=== PATIENT | male | born 1965 | race Caucasian/White ===

== ENCOUNTER 2016-12-17 08:02 | Outpatient (CLI) | payer MEDICARE, OTHER ==
[2016-12-17 08:43] LABS: eGFR (African) > 60; eGFR (Non-African) > 60
== END 2016-12-17 08:03 ==
LOC: LAB 08:02
PROVIDERS: ATTEND Family Medicine
DX: I10 Essential (primary) hypertension (principal)
CPT/HCPCS: 36415; 80053; 80061

== ENCOUNTER 2017-09-05 08:07 | Outpatient (CLI) | payer MEDICARE, OTHER ==
[~2017-09-05 08:07] MED LIST: BUPIVACAINE HCL/PF 2.5 MG/ML 10ML VIAL IV ONE; KETAMINE HCL 200 MG/20 ML VIAL ONE; LIDOCAINE HCL/PF 2% 100 MG/5 ML VIAL IJ ONE; NORMAL SALINE 500 ML IV.SOLN IV ONE; PROPOFOL 500 MG/50 ML VIAL IV ONE; SALINE FLUSH 10 ML DISP.SYRIN IVF ONE; TRIAMCINOLONE ACETONID 40MG/ML VIAL ONE
--- NOTE | 2017-09-05 12:59 | SURGICAL PROCEDURE NOTE PAIN ---
RADIOFREQUENCY NEUROLYSIS OF THE MEDIAL BRANCH OF THE SACRAL ALA, THE POSTERIOR/DORSAL BRANCHES OF S1, S2, AND S3. SUBJECTIVE: Mr. Mondragon presents today in follow up with return of bilateral low back pain, sacroiliac joint in nature. One year ago, I performed a lumbosacral radiofrequency neurolysis which markedly improved his back pain. He says that about a month ago his symptoms began returning and they are severe enough that he is presenting for a repeat radiofrequency neurolysis of the sacral ala, S1, S2, and S3. I am planning on doing this with monitored anesthesia care. ANESTHESIA: Monitored anesthesia care. PROCEDURE: Radiofrequency neurolysis of the medial branch of the sacral ala, the dorsal/ posterior branches of S1, S2, and S3. DESCRIPTION OF PROCEDURE: Consent was obtained after risks were fully explained including bleeding, infection, nerve damage, worsening of symptoms, and no improvement. The patient was taken to the procedure room and positioned prone on the fluoroscopic procedure table and under IV monitored anesthesia care, a skin wheal was raised over the left and right paraspinal margins with 1% Lidocaine. Following this, a 15 cm RFK needle was advanced to the junction of the S1 superior articular process of the sacral ala on both the left and right sides and motor stimulus at 2 Hz at 2.5 milliamps revealed no evidence of motor nerve root stimulation. Following this, 2 more needles were then placed at the lateral posterior foramen of S1 and S2 at the level of the dorsal/posterior branch of the sacral root and stimulus was then again affected. At this point, S2 and S3 bilaterally, needles were also placed in the same fashion and tested. Following this, a total of 40 mg was used with a local anesthetic of 1 mL of lidocaine and 1 mL of bupivacaine for a total of 8 mL of lidocaine and 8 mL of bupivacaine were used to anesthetize the tissue at the needle tip. With the needles in place, radiofrequency neurolysis was begun at 80 degrees centigrade for a total of 120 seconds. The needles were rotated at the 60 second point 180 degrees. At the conclusion of the procedure, the needles were removed. A sterile dressing was applied and the patient was taken to the recovery room in good condition status post radiofrequency neurolysis of 2 medial branches at the sacral ala and 6 dorsal/posterior branches of S1, S2, and S3. The patient was monitored for 20 minutes following the procedure, during which time the patient experienced no adverse sequelae. The patient was discharged home in good condition with a buggy driver driving the patient home. IMPRESSION: Lumbosacral spondylosis. PLAN: Radiofrequency neurolysis of sacral ala, S1, S2, and S3. FOLLOW UP: Return to clinic if problems develop or worsen. cc: Dr. Julita MCMAHON
== END 2017-09-05 08:10 ==
LOC: OUT 08:07
PROVIDERS: ATTEND Anesthesiology Pain Medicine
DX: M47.817 Spondylosis without myelopathy or radiculopathy, lumbosacral region (principal)
CPT/HCPCS: 64635; 64636; 99213; G0463; J2001; J2704; J3301; J3490; J7060; S1016

== ENCOUNTER 2017-12-06 12:35 | Outpatient (CLI) | payer MEDICARE, OTHER ==
--- NOTE | 2017-12-12 09:59 | PAIN CLINIC PROGRESS NOTES ---
REASON FOR VISIT: Mr. Mondragon follows up with a history of low back pain. I performed bilateral sacral ala, S1, S2, and S3 radiofrequency neurolysis in August of last year and his sacroiliac joint pain has completely resolved. He says he has not had any recurrence and that he can ambulate without pain or limitation and that he would like to start a weight loss program. ASSESSMENT: Lumbosacral spondylolytic back pain with an excellent response to radiofrequency neurolysis. PLAN: At this point, he has no limitations and told him that I would follow him up on an as-needed basis. He is agreement. cc: Dr. Julita MCMAHON
== END 2017-12-06 12:36 ==
LOC: OUT 12:35
PROVIDERS: ATTEND Anesthesiology Pain Medicine
DX: M46.87 Other specified inflammatory spondylopathies, lumbosacral region (principal)
CPT/HCPCS: 99212; G0463

== ENCOUNTER 2018-03-22 11:08 | Outpatient (CLI) | payer MEDICARE, OTHER ==
[2018-03-22 11:48] LABS: eGFR (African) > 60; eGFR (Non-African) 57
== END 2018-03-22 11:10 ==
LOC: LAB 11:08
PROVIDERS: ATTEND Family Medicine
DX: I10 Essential (primary) hypertension (principal)
CPT/HCPCS: 36415; 80053